=== PATIENT | male | born 1950 | race Caucasian/White ===

== ENCOUNTER 2024-11-25 10:45 | Outpatient (CLI) | payer MEDICARE | END 2024-11-25 10:46 | disposition home or self-care (01) | LOC: CSHRAD 10:45 | PROVIDERS: ATTEND Chiropractor | DX: M54.50 Low back pain, unspecified (principal); M47.816 Spondylosis without myelopathy or radiculopathy, lumbar region | CPT/HCPCS: 72100 ==